=== PATIENT | male | born 1955 | race Caucasian/White ===

== ENCOUNTER 2022-02-12 13:28 | Emergency (ER) | payer SELFPAY ==
--- NOTE | 2022-02-12 14:12 | RAD REPORT ---
[facility]12/[facility]22 2:02 pm CLINICAL HISTORY: left flank pain COMPARISON: No comparisons TECHNIQUE: CT of the abdomen and pelvis was performed. All CT scans are performed using dose optimization technique as appropriate and may include automated exposure control or mA/KV adjustment according to patient size. FINDINGS: Lower chest: No acute abnormality. Small hiatal hernia. Liver: No acute abnormality or suspicious lesions. Biliary: No biliary ductal dilatation. Stomach: No significant focal abnormality. Duodenum: No significant focal abnormality. Pancreas: No significant abnormality. Spleen: No significant abnormality. Adrenal: No suspicious lesions. Kidney/ureter: Mild left-sided hydronephrosis secondary to a 5 mm stone in the left mid ureter. Punct ate left renal calculi noted. 15 mm indeterminate left upper pole exophytic renal lesion. The lesion has Hounsfield units above that of simple fluid. Retroperitoneum: No retroperitoneal adenopathy. Vascular: No aneurysm. Bowel: No significant focal abnormality. Normal appendix. Peritoneum: No ascites or free air. Bladder: Grossly unremarkable. Reproductive: No adnexal masses. Bones: No acute fracture. Sclerotic focus in the right iliac bone is presumably a bone island. No oth er suspicious lesions are seen. Other: n/a IMPRESSION: 1. Mild left-sided hydroureteronephrosis secondary to a 5 mm stone in the left mid urete r. 2. Indeterminate left upper pole exophytic renal lesion may represent a hemorrhagic or proteinaceous cyst however further evaluation with renal protocol CT or MRI is recommended to confirm.
[2022-02-12] MEDS ORDERED: ONDANSETRON 4 MG/2 ML VIAL ONE (14:18)
[2022-02-12] MEDS ORDERED: MORPHINE 4 MG/ML SYR ONE (14:18)
[2022-02-12] MEDS ORDERED: NA CHLORIDE 0.9% 1,000 ML ONE (14:18)
[2022-02-12 14:39] LABS: Absolute Lymphocytes (CBC) 1.4 K/uL (0.7-4.9); Hematocrit 44.8 % (39.6-49.0); Lymphocytes % 17.7 % (15.3-44.8); MCV 83.4 fL (80-100); MPV 6.8 fL (7.6-11.3); RBC Red Blood Cell Count 5.37 M/uL (4.33-5.43)
[2022-02-12 14:52] LABS: Albumin 3.9 g/dL (3.4-5.0); Bilirubin Total 0.8 mg/dL (0.2-1.0); Potassium 3.5 mmol/L (3.5-5.1); Protein, Total 7.7 g/dL (6.4-8.2)
[2022-02-12] MEDS ORDERED: MAGNESIUM SULFATE 1 gm IVPB 1 GM/100 ML BAG IV ONE (15:16)
[2022-02-12] MEDS ORDERED: TAMSULOSIN 0.4 MG SR CAP ONE (15:16)
[2022-02-12 15:55] LABS: Urine Blood 3+ (Negative); Urine Glucose Negative (Negative); Urine Protein Negative (Negative); Urine Specific Gravity 1.015 (1.005-1.030); Urine pH 5.5 (5.0-7.0)
--- NOTE | 2022-02-12 16:07 | ER ---
Nurse's Notes [facility] Name: Jos Ellis Age: 66 yrs Sex: Male : 1955 Arrival Date: 02/12/2022 Time: 13:31 Bed 14 Private MD: Diagnosis: Calculus of ureter Presentation: 02/12 13:37 Chief complaint: Patient states: L flank pain for 4 days. No fever. Believes its ll1 another kidney stone. Coronavirus screen: Vaccine status: Patient reports being unvaccinated. Client denies travel out of the [place] in the last 14 days. At this time, the client does not indicate any symptoms associated with coronavirus-19. Ebola Screen: Patient denies travel to an Ebola-affected area in the 21 days before illness onset. Initial Sepsis Screen: Does the patient meet any 2 criteria? No. Patient's initial sepsis screen is negative. Does the patient have a suspected source of infection? Yes: Dysuria/Frequency/Urgency/UTI. Risk Assessment: Do you want to hurt yourself or someone else? Patient reports no desire to harm self or others. Onset of symptoms was February 08, 2022. 13:37 Method Of Arrival: Ambulatory ll1 13:37 Acuity: ASH 2 ll1 Triage Assessment: 13:38 General: Appears uncomfortable, Behavior is cooperative, appropriate for age. Pain: ll1 Complains of pain in L flank Quality of pain is described as aching. GI: Reports lower abdominal pain, nausea. : Reports pain in left flank(s). Historical: - Allergies: 13:37 No Known Allergies; ll1 - PMHx: 13:37 Diabetes mellitus; kidney stones; ll1 - PSHx: 13:37 None; ll1 - Immunization history:: Client reports having NOT received the Covid vaccine. - Social history:: Smoking status: Patient denies any tobacco usage or history of. Screenin:57 Abuse screen: Denies threats or abuse. Denies injuries from another. Nutritional db screening: No deficits noted. Tuberculosis screening: No symptoms or risk factors identified. Fall Risk None identified. No fall in past 12 months (0 pts). No secondary diagnosis (0 pts). IV access (20 points). Ambulatory Aid- None/Bed Rest/Nurse Assist (0 pts). Gait- Normal/Bed Rest/Wheelchair (0 pts) Mental Status- Oriented to own ability (0 pts). Total Selby Fall Scale indicates No Risk (0-24 pts). Assessment: 14:00 Reassessment: Patient appears in no apparent distress at this time. Patient and/or db family updated on plan of care and expected duration. Pain level reassessed. Patient is alert, oriented x 3, equal unlabored respirations, skin warm/dry/pink. patient states pain started 1 week ago worse today. Reassessment: denies N/V. Pain: Complains of pain in back and abdomen. Neuro: No deficits noted. Level of Consciousness is awake, alert, obeys commands, Oriented to person, place, time, situation, Appropriate for age. 14:58 GI: Bowel sounds present X 4 quads. Abd is soft Abd is non tender. db 16:12 Reassessment: Patient appears in no apparent distress at this time. Patient and/or db family updated on plan of care and expected duration. Pain level reassessed. Patient is alert, oriented x 3, equal unlabored respirations, skin warm/dry/pink. Patient states feeling better. Patient states symptoms have improved. Vital Signs: 13:37 BP 184 / 127; Pulse 81; Resp 18; Temp 98.0; Pulse Ox 100% on R/A; Weight 81.65 kg; ll1 Height 6 ft. 0 in. (182.88 cm); Pain 10/10; 14:10 BP 165 / 100; Pulse 79; Resp 18; Pulse Ox 100% on R/A; Pain 8/10; db 14:30 BP 150 / 94; Pulse 67; Resp 18; Pulse Ox 100% on R/A; db 15:00 BP 163 / 99; Pulse 72; Resp 16; Pulse Ox 100% on R/A; Pain 2/10; db 15:30 BP 144 / 96; Pulse 63; Resp 16; Pulse Ox 99% on R/A; db 16:00 BP 153 / 88; Pulse 63; Resp 18; Pulse Ox 99% on R/A; db 16:25 BP 144 / 96; Pulse 63; Resp 18; Pulse Ox 99% on R/A; Pain 0/10; db 13:37 Body Mass Index 24.41 (81.65 kg, 182.88 cm) ll1 ED Course: 13:31 Patient arrived in ED. rg4 13:33 Holly Lu, RAMAKRISHNA is Primary Nurse. db 13:34 Inés Andujar FNP-C [facility]. kb 13:34 Enmanuel Montero MD is Attending Physician. kb 13:37 Arm band placed on Patient placed in an exam room, on a stretcher. ll1 13:38 Triage completed. ll1 14:03 CT Stone Protocol In Process Unspecified. EDMS 14:21 CBC with Diff Sent. kc6 14:21 CMP Sent. kc6 14:21 Inserted saline lock: 20 gauge in right antecubital area, using aseptic technique. kc6 Blood collected. 15:37 Patient has correct armband on for positive identification. Bed in low position. Call db light in reach. Side rails up X 1. 15:37 Pulse ox on. NIBP on. Warm blanket given. db 16:07 Gamal Ramírez MD is Referral Physician. kb 16:26 No provider procedures requiring assistance completed. IV discontinued, intact, db bleeding controlled, No redness/swelling at site. Administered Medications: 14:20 Drug: NS 0.9% 1000 ml Route: IV; Rate: 1 bolus; Site: right antecubital; db 15:23 Follow up: Response: No adverse reaction; IV Status: Completed infusion; IV Intake: db 1000ml 14:20 Drug: Zofran (Ondansetron) 4 mg Route: IVP; Site: right antecubital; db 15:25 Follow up: Response: No adverse reaction db 14:20 Drug: morphine 4 mg Route: IVP; Infused Over: 4 mins; Site: right antecubital; db 15:25 Follow up: Response: No adverse reaction; Pain is decreased db 15:23 Drug: Magnesium Sulfate 1 grams Route: IVPB; Infused Over: 1 hrs; Site: right db antecubital; 16:27 Follow up: IV Status: Completed infusion; IV Intake: 100ml db 16:27 Follow up: Response: No adverse reaction db 15:23 Drug: Flomax (tamsulosin) 0.4 mg Route: PO; db 16:13 Follow up: Response: No adverse reaction db Medication: 15:38 VIS not applicable for this client. db Intake: 15:23 IV: 1000ml; Total: 1000ml. db 16:27 IV: 100ml; Total: 1100ml. db Outcome: 16:06 Discharge ordered by MD. narayanan 16:26 Discharged to home ambulatory. db 16:26 Condition: stable 16:26 Discharge instructions given to patient, Instructed on discharge instructions, follow up and referral plans. Prescriptions given X 4. 16:27 Patient left the ED. db Signatures: Dispatcher [employer] EDMS Inés Andujar, CARMELO SYED-Divina Martinez rg4 Aide Webber RN RN ll1 Shruthi Wheeler RN RN kc6 Holly Lu RN RN db Corrections: (The following items were deleted from the chart) 15:27 15:00 BP 137 / 56; Pulse 103bpm; Resp 18bpm; Pulse Ox 100% 2 lpm Nasal Cannula; db db 16:27 16:25 BP 144 / 96; Pulse 63bpm; Resp 18bpm; Pulse Ox 99% RA; db db
--- NOTE | 2022-02-12 16:07 | EDPHYS ---
Physician Documentation [facility] Name: Jos Ellis Age: 66 yrs Sex: Male : 1955 Arrival Date: 02/12/2022 Time: 13:31 Bed 14 Private MD: ED Physician Enmanuel Montero HPI: 02/12 18:02 This 66 yrs old Male presents to ER via Ambulatory with complaints of Possible Kidney kb Stone. 18:03 The patient complains of pain in the left flank. The pain does not radiate. Onset: The kb symptoms/episode began/occurred 5 day(s) ago. Modifying factors: The symptoms are alleviated by nothing. the symptoms are aggravated by nothing. Associated signs and symptoms: The patient has no apparent associated signs or symptoms. Severity of pain: At its worst the pain was moderate in the emergency department the pain is unchanged. The patient has not experienced similar symptoms in the past. The patient has not recently seen a physician. Pt reports he believes he has a kidney stone on the left side. Reports pain to left flank for 2 days. Denies any other symptoms. Historical: - Allergies: 13:37 No Known Allergies; ll1 - PMHx: 13:37 Diabetes mellitus; kidney stones; ll1 - PSHx: 13:37 None; ll1 - Immunization history:: Client reports having NOT received the Covid vaccine. - Social history:: Smoking status: Patient denies any tobacco usage or history of. ROS: 18:02 Constitutional: Negative for fever, chills, and weight loss. kb 18:02 Back: Positive for flank pain, on the left. 18:02 All other systems are negative. Exam: 18:02 Constitutional: This is a well developed, well nourished patient who is awake, alert, kb and in no acute distress. Head/Face: Normocephalic, atraumatic. ENT: Moist Mucous membranes Cardiovascular: Regular rate and rhythm with a normal S1 and S2. No gallops, murmurs, or rubs. No pulse deficits. Respiratory: Respirations even and unlabored. No increased work of breathing. Talking in full sentences Abdomen/GI: Soft, non-tender. No distention Skin: Warm, dry with normal turgor. Normal color. MS/ Extremity: Pulses equal, no cyanosis. Neurovascular intact. Full, normal range of motion. Neuro: Awake and alert, GCS 15, oriented to person, place, time, and situation. Moves all extremities. Normal gait. Psych: Awake, alert, with orientation to person, place and time. Behavior, mood, and affect are within normal limits. 18:02 Back: pain, that is mild, ROM is normal, normal spinal alignment noted, CVA tenderness, that is mild, is noted on the left, vertebral tenderness, is not appreciated. Vital Signs: 13:37 BP 184 / 127; Pulse 81; Resp 18; Temp 98.0; Pulse Ox 100% on R/A; Weight 81.65 kg; ll1 Height 6 ft. 0 in. (182.88 cm); Pain 10/10; 14:10 BP 165 / 100; Pulse 79; Resp 18; Pulse Ox 100% on R/A; Pain 8/10; db 14:30 BP 150 / 94; Pulse 67; Resp 18; Pulse Ox 100% on R/A; db 15:00 BP 163 / 99; Pulse 72; Resp 16; Pulse Ox 100% on R/A; Pain 2/10; db 15:30 BP 144 / 96; Pulse 63; Resp 16; Pulse Ox 99% on R/A; db 16:00 BP 153 / 88; Pulse 63; Resp 18; Pulse Ox 99% on R/A; db 16:25 BP 144 / 96; Pulse 63; Resp 18; Pulse Ox 99% on R/A; Pain 0/10; db 13:37 Body Mass Index 24.41 (81.65 kg, 182.88 cm) ll1 MDM: 13:35 Patient medically screened. kb 16:05 Data reviewed: vital signs, nurses notes. Data interpreted: Pulse oximetry: on room air kb is 99 %. Interpretation: normal. Counseling: I had a detailed discussion with the patient and/or guardian regarding: the historical points, exam findings, and any diagnostic results supporting the discharge/admit diagnosis, lab results, radiology results, the need for outpatient follow up, a urologist, to return to the emergency department if symptoms worsen or persist or if there are any questions or concerns that arise at home. ED course: Pain resolved. Pt in agreement with outpatient treatment. 02/12 13:46 Order name: CBC with Diff; Complete Time: 14:50 kb 02/12 13:46 Order name: CMP; Complete Time: 14:56 kb 02/12 13:46 Order name: CT Stone Protocol; Complete Time: 14:18 kb 02/12 15:55 Order name: Urine Dipstick-Ancillary; Complete Time: 15:56 EDMS 02/12 13:36 Order name: Urine Dipstick-Ancillary (obtain specimen); Complete Time: 15:54 kb 02/12 13:46 Order name: IV Saline Lock; Complete Time: 14:21 kb 02/12 13:46 Order name: Labs collected and sent; Complete Time: 14:21 kb 02/12 14:35 Order name: Vital Signs; Complete Time: 15:14 kb Administered Medications: 14:20 Drug: NS 0.9% 1000 ml Route: IV; Rate: 1 bolus; Site: right antecubital; db 15:23 Follow up: Response: No adverse reaction; IV Status: Completed infusion; IV Intake: db 1000ml 14:20 Drug: Zofran (Ondansetron) 4 mg Route: IVP; Site: right antecubital; db 15:25 Follow up: Response: No adverse reaction db 14:20 Drug: morphine 4 mg Route: IVP; Infused Over: 4 mins; Site: right antecubital; db 15:25 Follow up: Response: No adverse reaction; Pain is decreased db 15:23 Drug: Magnesium Sulfate 1 grams Route: IVPB; Infused Over: 1 hrs; Site: right db antecubital; 16:27 Follow up: IV Status: Completed infusion; IV Intake: 100ml db 16:27 Follow up: Response: No adverse reaction db 15:23 Drug: Flomax (tamsulosin) 0.4 mg Route: PO; db 16:13 Follow up: Response: No adverse reaction db Disposition Summary: 02/12/22 16:06 Discharge Ordered Location: Home kb Condition: Stable kb Diagnosis - Calculus of ureter kb Followup: kb - With: Emergency Department - When: As needed - Reason: Worsening of condition Followup: kb - With: Private Physician - When: 2 - 3 days - Reason: Recheck today's complaints, Continuance of care, Re-evaluation by your physician Followup: kb - With: Gamal Ramírez MD - When: 2 - 3 days - Reason: Recheck today's complaints Discharge Instructions: - Discharge Summary Sheet kb - Kidney Stones, [id number] kb - Dietary Guidelines to Help Prevent Kidney Stones kb Forms: - Medication Reconciliation Form kb - Thank You Letter kb - Antibiotic Education kb - Prescription Opioid Use kb Prescriptions: - Flomax 0.4 mg Oral capsule - take 1 capsule by ORAL route once daily 1/2 hour following the same meal each kb day; 10 capsule; Refills: 0, Product Selection Permitted - Augmentin 875-125 mg Oral Tablet - take 1 tablet by ORAL route every 12 hours for 10 days; 20 tablet; Refills: 0, kb Product Selection Permitted - Zofran 4 mg Oral Tablet - take 1 tablet by ORAL route every 6 hours As needed; 20 tablet; Refills: 0, kb Product Selection Permitted - Diclofenac Sodium 75 mg Oral tablet,delayed release (DR/EC) - take 1 tablet by ORAL route 2 times per day As needed; 30 tablet; Refills: 0, kb Product Selection Permitted Addendum: 02/15/2022 20:21 Co-signature as Attending Physician, Enmanuel Montero MD I agree with the assessment and r t plan of care. Signatures: Dispatcher [employer] Inés Dumont, YAHAIRA-C MOLDING PROCESS TECHNICIAN-Aide Canchola, RN RN ll1 Holly Lu, RN RN db Enmanuel Montero MD MD rt
[2022-02-12 16:32] VITALS: TEMP 98
[2022-02-12 16:37] VITALS: O2SAT 99
[2022-02-12 16:39] VITALS: BP 144/96
== END 2022-02-12 16:27 | disposition home or self-care (01) ==
LOC: ER 13:28
DX: N20.1 Calculus of ureter (principal); Z87.442 Personal history of urinary calculi; E11.9 Type 2 diabetes mellitus without complications
CPT/HCPCS: 36415; 74176; 76377; 80053; 81003; 85025; 96361; 96365; 96375; 99284; J2405; J3475; J7030